=== PATIENT | female | born 1995 | race Caucasian/White ===

== ENCOUNTER 2017-12-11 11:46 | Emergency (ER) | payer BC, MEDICAID ==
--- NOTE | 2017-12-11 11:59 | EDM.PDOC ---
ED HPI GENERAL MEDICAL PROBLEM - General Chief Complaint: Headache Stated Complaint: HEADACHES Time Seen by Provider: 12/11/17 11:50 Source of Information: Reports: Patient History Limitations: Reports: No Limitations - History of Present Illness INITIAL COMMENTS - FREE TEXT/NARRATIVE: HISTORY AND PHYSICAL: History of present illness: Patient is a 22-year-old female who presents to the emergency room with complaints of headache since Monday. She states she does have a history of migraine headaches and has previously used and abortive medication but has been out of this for some time. She does have an appointment with her primary care provider, Dr. Baltazar at [facility] for to have her headaches reevaluated and renew her prescription. She states that the headache is generalized and has noise and light sensitivity. Does have mild nausea. She denies any recent fevers , chills, chest pain or shortness of breath. Denies any abdominal pain, vomiting , diarrhea, constipation or dysuria. No recent head injury, trauma or falls. No change in vision, near syncope or syncope. Review of systems: As per history of present illness and below otherwise all systems reviewed and negative. Past medical history: As per history of present illness and as reviewed below otherwise noncontributory. Surgical history: As per history of present illness and as reviewed below otherwise noncontributory. Social history: No reported history of drug or alcohol abuse. Family history: As per history of present illness and as reviewed below otherwise noncontributory. Physical exam: General: Well-developed and well-nourished 22-year-old female. Alert and oriented. Nontoxic appearing and in no acute distress. HEENT: Atraumatic, normocephalic, pupils equal and reactive bilaterally, negative for conjunctival pallor or scleral icterus, mucous membranes moist, throat clear, neck supple, nontender, trachea midline. No drooling or trismus noted. No meningeal signs Lungs: Clear to auscultation, breath sounds equal bilaterally, chest nontender. Heart: S1S2, regular rate and rhythm without overt murmur Abdomen: Soft, nondistended, nontender. Negative for masses or hepatosplenomegaly. Negative for costovertebral tenderness. Pelvis: Stable nontender. Genitourinary: Deferred. Rectal: Deferred. Skin: Intact, warm, dry. No lesions or rashes noted. Extremities: Atraumatic, negative for cords or calf pain. Neurovascular unremarkable. Neuro: Awake, alert, oriented. Cranial nerves II through XII unremarkable. Cerebellum unremarkable. Motor and sensory unremarkable throughout. Exam nonfocal. Notes: We discussed doing a head CT, which she declines. He does not rate this headache as "the worst headache of her life" does have a history of migraines. She does have a ride today and we will proceed with IV fluids and medications. IV fluids and medications were given. Patient feels improved. Vital signs are stable. She'll be discharged to follow-up with her primary care provider. She did Diagnostics: None Therapeutics: IV fluids, Benadryl, Zofran, Reglan, Toradol Prescription: None Impression: Migraine Headache Plan: 1. Do not drive the rest of the day as the medications you had can cause drowsiness/sedation 2. Rest in a dark and quiet room. 3. Take over the counter medications as needed for your migraine pain 4. Keep your appointment with Dr Baltazar as scheduled. Return to the ED as needed as discussed. Definitive disposition and diagnosis as appropriate pending reevaluation and review of above. Duration: Day(s): Location: Reports: Head headache Pain Score (Numeric/FACES): 8 - Related Data Allergies Allergy/AdvReac Type Severity Reaction Status Date / Time No Known Allergies Allergy Verified 12/11/17 12:03 Home Meds: Home Meds Eletriptan HBr 40 mg PO DAILY 12/11/17 [History] Topiramate 50 mg PO BID 12/11/17 [History] ED ROS GENERAL - Review of Systems Review Of Systems: ROS reveals no pertinent complaints other than HPI. - Physical Exam Exam: See Below (See dictation) Course - Vital Signs Last Recorded V/S: Last Vital Signs Temp 98.7 F 12/11/17 12:04 Pulse 92 12/11/17 12:04 Resp 18 12/11/17 12:04 BP 144/84 H 12/11/17 12:04 Pulse Ox 98 12/11/17 12:04 - Orders/Labs/Meds Meds: Medications Discontinued Medications Generic Name Dose Route Start Last Admin Trade Name Freq PRN Reason Stop Dose Admin Diphenhydramine HCl 50 mg 12/11/17 12:04 12/11/17 12:33 Benadryl IVPUSH 12/11/17 12:05 50 mg ONETIME ONE Administration Sodium Chloride 1,000 mls @ 999 mls/hr 12/11/17 12:04 12/11/17 12:32 Normal Saline IV 12/11/17 13:04 999 mls/hr STAT ONE Administration Ketorolac Tromethamine 30 mg 12/11/17 12:04 12/11/17 12:32 Toradol IVPUSH 12/11/17 12:05 30 mg ONETIME ONE Administration Metoclopramide HCl 10 mg 12/11/17 12:04 12/11/17 12:33 Reglan IV 12/11/17 12:05 10 mg ONETIME ONE Administration Ondansetron HCl 4 mg 12/11/17 12:04 12/11/17 12:32 Zofran IVPUSH 12/11/17 12:05 4 mg ONETIME ONE Administration Departure - Departure Time of Disposition: 13:18 Disposition: Home, Self-Care 01 Clinical Impression: Migraine - Discharge Information Instructions: Migraine Headache Referrals: PCP,None [Primary Care Provider] - Forms: ED Department Discharge Additional Instructions: The following information is given to patients seen in the emergency department who are being discharged to home. This information is to outline your options for follow-up care. We provide all patients seen in our emergency department with a follow-up referral. The need for follow-up, as well as the timing and circumstances, are variable depending upon the specifics of your emergency department visit. If you don't have a primary care physician on staff, we will provide you with a referral. We always advise you to contact your personal physician following an emergency department visit to inform them of the circumstance of the visit and for follow-up with them and/or the need for any referrals to a consulting specialist. The emergency department will also refer you to a specialist when appropriate. This referral assures that you have the opportunity for follow-up care with a specialist. All of these measure are taken in an effort to provide you with optimal care, which includes your follow-up. Under all circumstances we always encourage you to contact your private physician who remains a resource for coordinating your care. When calling for follow-up care, please make the office aware that this follow-up is from your recent emergency room visit. If for any reason you are refused follow-up, please contact the [facility] Emergency Department at and asked to speak to the emergency department charge nurse. MARK De Le[facility]Chi [facility] [address] [place] [id number] [address] the rest of the day as the medications you had can cause drowsiness/sedation 2. Rest in a dark and quiet room. 3. Take over the counter medications as needed for your migraine pain 4. Keep your appointment with Dr Baltazar as scheduled. Return to the ED as needed as discussed.
[2017-12-11] MEDS ORDERED: Sodium Chloride 0.9% 1,000 ML IV ONE (12:04)
[2017-12-11] MEDS ORDERED: Ketorolac 30 MG/ML SDV IVPUSH ONE (12:04)
[2017-12-11] MEDS ORDERED: Ondansetron 4 MG/2 ML SDV IVPUSH ONE (12:04)
[2017-12-11] MEDS ORDERED: diphenhydrAMINE 50 MG/ML SDV IVPUSH ONE (12:04)
[2017-12-11] MEDS ORDERED: Metoclopramide 10 MG/2 ML SDV IV ONE (12:04)
== END 2017-12-11 13:55 | disposition home or self-care (01) ==
LOC: MW.ED 11:46
DX: G43.909 Migraine, unspecified, not intractable, without status migrainosus (principal)
CPT/HCPCS: 96361; 96374; 96375; 99283; J1200; J1885; J2405; J2765; J7040

== ENCOUNTER 2021-08-30 12:09 | Emergency (ER) | payer BC ==
[2021-08-30] MEDS ORDERED: Sodium Chloride 0.9% 1,000 ML IV ONE (12:39)
[2021-08-30] MEDS ORDERED: Ketorolac 30 MG/ML SDV IVPUSH ONE (13:24)
[2021-08-30] MEDS ORDERED: diphenhydrAMINE 50 MG/ML SDV IVPUSH ONE (13:24)
[2021-08-30] MEDS ORDERED: Metoclopramide 10 MG/2 ML SDV IV ONE (13:24)
[2021-08-30] MEDS ORDERED: Ondansetron 4 MG/2 ML SDV IVPUSH ONE (13:24)
[2021-08-30] MEDS ORDERED: Ondansetron 4 MG/2 ML SDV IVPUSH SCH (13:30)
[2021-08-30 13:34] LABS: CORONAVIRUS COVID-19 NAA POSITIVE (NEGATIVE); INFLUENZA A NAA NEGATIVE (NEGATIVE); INFLUENZA B NAA NEGATIVE (NEGATIVE)
== END 2021-08-30 14:32 | disposition home or self-care (01) ==
LOC: MW.ED 12:09
DX: U07.1 COVID-19 (principal)
CPT/HCPCS: 0240U; 36415; 84703; 96374; 96375; 99283; J1200; J1885; J2405; J2765; J7030